=== PATIENT | male | born 1995 ===

== ENCOUNTER 2016-10-14 15:00 | Inpatient (IN) ==
[2016-10-14] MEDS ORDERED: ACETAMINOPHEN 325 MG TABLET PO PRN (16:24)
[2016-10-14] MEDS ORDERED: ONDANSETRON 4 MG/2 ML VIAL IV PRN (16:24)
[2016-10-14] MEDS ORDERED: LORazepam 2 MG/1 ML VIAL IV PRN (16:29)
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
[2016-10-14] MEDS ORDERED: HALOPERIDOL 5 MG/ML AMP IM PRN (16:49)
[2016-10-14] MEDS: SODIUM CHLOR 0.45% KCL 20 MEQ 20 MEQ/1,000 ML BAG IV SCH ×2 (18:20→19:28)
[2016-10-15] MEDS: SODIUM CHLOR 0.45% KCL 20 MEQ 20 MEQ/1,000 ML BAG IV SCH ×2 (05:11→14:53)
[2016-10-15 05:34] LABS: Basophils % 0.4 % (0.0-0.8); Eosinophils # 0.1 10*3/uL (0.0-0.87); Eosinophils % 0.5 % (0.00-10.9); Hematocrit 37.4 VOL% (42.0-52.0); Hemoglobin 13.2 GM/DL (14.0-18.0); Immature Granulocytes % 0.4 %; Immature Granulocytes Absolute 0.04 #; Lymphocytes # 1.6 10*3/uL (1.4-4.0); Lymphocytes % 17.5 % (21.2-54.2); Mean Corpuscular HGB Conc 35.3 GM/DL (32-36); Mean Corpuscular Hemoglobin 32 PG (27-34); Mean Corpuscular Volume 90.6 FL (87-102); Mean Platelet Volume 10.2 FL (9.6-12.0); Monocytes # 0.7 10*3/uL (0.11-0.8); Neutrophils # 6.7 10*3/uL (1.4-7.4); Neutrophils % 73.2 % (38.7-73.9); Platelet Count 169 T/CUMM (130-400); Red Blood Count 4.13 MC/CUMM (3.8-5.5); Red Cell Distribution Width 12.1 % (9.3-17.3); White Blood Count 9.2 T/CUMM (4-12)
[2016-10-15] MEDS ORDERED: ENOXAPARIN 40 MG/0.4 ML SYRINGE SUBCUT SCH (06:00)
[2016-10-15 06:10] LABS: Albumin 3.5 G/DL (3.4-5.0); Bilirubin,Total 1.1 MG/DL (0.2-1.0); Calcium 8.4 MG/DL (8.5-10.1); Magnesium 1.8 MG/DL (1.8-2.4); Osmolality,Calculated 276.5 MOS/KG (273-304); Potassium 4.1 MMOL/L (3.5-5.1); Total Protein 6.1 G/DL (6.4-8.3)
[2016-10-15] MEDS ORDERED: FOLIC ACID 1 MG TABLET PO SCH (09:00)
[2016-10-15] MEDS ORDERED: MULTIVITAMIN (CENTRUM) TABLET PO SCH (09:00)
[2016-10-15] MEDS ORDERED: THIAMINE 200 MG/2 ML VIAL IV SCH (09:00)
--- NOTE | 2016-10-15 14:13 | Discharge Summary ---
Hospital Course - Hospital Course Hospital Course: 21-year-old male admitted to the intensive care unit as a transfer from [facility]. The patient was sent here for altered mental status and belligerent behavior thought to be related to a psychiatric disorder. The patient was found to be an acutely intoxicated after celebrating his 21nd birthday. He had sustained a laceration to his right hand requiring stitches. This was performed in the emergency department [facility] prior to his transfer. The patient arrived here, awake and alert but confused and combative. He required Haldol for sedation and management of his behavior. He did well over the course of his hospital stay. He had no further combative behavior and slept it off until this morning. [place]child catheter was removed at his request. Labs have been reviewed and are within normal limits. This morning the patient is awake alert oriented 3. He is pleasant and cooperative. His family is at the bedside and reports that he is back to his baseline. Patient has no history of psychiatric illness and takes no medications. He denies any illicit drug use. He is being released from the intensive care unit home to his family and stable condition to follow-up as an outpatient as needed. - Time spent with patient Time with patient DS: Less than 30 minutes Diagnosis - Discharge Diagnosis (1) Combative behavior Status: Resolved (2) Altered mental status Status: Resolved (3) Alcohol intoxication Status: Resolved (4) Hand laceration Status: Acute Specialty Discharge - Follow Up or Referrals Discharge Plan - Discharge Data Disposition: Disch To Home/Self Care Condition at Discharge: Stable Discharge Diet: advance to your usual diet Activity: resume usual activities as tolerated Hygiene: no restrictions Weight Bearing at Discharge: full weight bearing Driving: no restrictions Contact your physician if you experience:: fever over 101, Bleeding - Discharge Medications No Action No Known Home Medications [No Known Home Medications] - Follow Up or Referral - Forms/Instructions Instructions: Alcohol Intoxication (DC), Acute Delirium (DC) Exam - Constitutional Vitals: Period Temp Pulse Resp BP Sys/Shanks Pulse Ox Last 24 Hr 97.6 F-99.1 F 59-106 12-21 83-120/35-73 96-100 Exam: Constitutional System: No distress. No tremulousness. Head: Normocephalic, atraumatic. Ears, Nose and Throat System: No pain or tenderness. No epistaxis or discharge Eyes System: Pupils equal, round, and reactive. Extraocular muscles intact. Neck: Supple, without adenopathy, No jugular venous distention. No thyromegaly, neck mass, or prior surgery apparent. Respiratory System: Chest clear to auscultation. Cardiovascular System: Heart with regular rate and rhythm. No murmur. GI System: Abdomen soft, nontender. Normo active bowel sounds present. Musculoskeletal System: limbs with no pedal edema. Full distal pulses. Lacerations noted in the right hand. Status post suture repair. No drainage, no infection. Neurological System: No discernable sensory deficit. No aphasia Psychiatric System: Conversation is rational Discharge Results Procedures and tests throughout hospitalization: Pending Orders 10/14/16 MRSA Surveillence, Inf Control Routine Labs on day of discharge: Labs from last 24 hours 10/15/16 10/15/16 10/15/16 11:07 08:10 07:37 WBC RBC Hgb Hct MCV MCH MCHC RDW Plt Count MPV Neut % (Auto) Lymph % (Auto) [place] % (Auto) Eos % (Auto) Baso % (Auto) Neut # (Auto) Lymph # (Auto) [place] # (Auto) Eos # (Auto) Baso # (Auto) Immature Gran % Nucleated RBC % Immature Gran # Nucleated RBCs # Immature Plt Fraction Sodium Potassium Chloride Carbon Dioxide Anion Gap BUN Creatinine GFR Calculation BUN/Creatinine Ratio Glucose POC Glucose 112 H 79 68 L Calculated Osmolality Calcium Magnesium Total Bilirubin AST ALT Alkaline Phosphatase Total Protein Albumin Globulin Albumin/Globulin Ratio 10/15/16 10/15/16 04:41 04:41 WBC 9.2 RBC 4.13 Hgb 13.2 L Hct 37.4 L MCV 90.6 MCH 32 MCHC 35.3 RDW 12.1 Plt Count 169 MPV 10.2 Neut % (Auto) 73.2 Lymph % (Auto) 17.5 L [place] % (Auto) 8.0 Eos % (Auto) 0.5 Baso % (Auto) 0.4 Neut # (Auto) 6.7 Lymph # (Auto) 1.6 [place] # (Auto) 0.7 Eos # (Auto) 0.1 Baso # (Auto) 0.0 Immature Gran % 0.4 Nucleated RBC % 0.0 Immature Gran # 0.04 Nucleated RBCs # 0.00 Immature Plt Fraction 0.0 Sodium 139 Potassium 4.1 Chloride 107 Carbon Dioxide 21 Anion Gap 15.1 H BUN 17 Creatinine 0.80 GFR Calculation 145 BUN/Creatinine Ratio 21.00 H Glucose 62 L POC Glucose Calculated Osmolality 276.5 Calcium 8.4 L Magnesium 1.8 Total Bilirubin 1.10 H AST 35 ALT 24 Alkaline Phosphatase 93 Total Protein 6.1 L Albumin 3.5 Globulin 2.6 Albumin/Globulin Ratio 1.3 DS: Provider Date of admission: 10/14/16 16:11 Primary care physician: Annalisa Beckett MD Attending physician on admission: Piedad Levine MD Consults: 10/14/16 16:53 Consult to Case Mgmt/Social Srvs [CONS] Routine Reason for Case Mgmt/Social Srvs: Psychiatric Management Discharging clinician: Piedad Levine MD Expected date of discharge: 10/15/16
[2016-10-15 14:51] VITALS: BP 112/55
== END 2016-10-15 14:40 | disposition home or self-care (01) | DRG 897 ==
LOC: N.CC 16:11
PROVIDERS: ADMIT Family Medicine; ATTEND Family Medicine